=== PATIENT | female | born 1945 | race Caucasian/White ===

== ENCOUNTER 2019-06-06 07:49 | Emergency (ER) | payer MEDICARE, SELFPAY ==
[2019-06-06 07:53] VITALS: BP 124/51; PULSE 64; RESP 18; TEMP 37.5; O2SAT 96
--- NOTE | 2019-06-06 08:00 | ED.DENTAL ---
HPI - Dental/Oral General Chief complaint: Dental/Oral Stated complaint: TOOTH ABSCESS Time Seen by Provider: 06/06/19 08:00 Source: patient Mode of arrival: ambulatory Limitations: no limitations History of Present Illness HPI Narrative: Pt is a 73 y/o female who presents to the ED with c/o rt lower tooth throbbing pain that started about 10 days ago. She states that she saw her Dentist a week ago and she was told that she had a cavity at the root of her tooth. She was put on Clindamycin but she has only takes it for 2 days. Pt also reports swelling to her rt lower jaw. She denies a fever. Her Dentist is Dr. Mukherjee, but he is out of town until 06/10/19. She was referred to a dental specialist to pull her tooth but she has not made that appointment yet. She tried using Oral-gel to numb her pain. Pt is able to take pain medicine without getting nauseas. Complaint: tooth pain Location: Tooth # (29) Teeth map: 1. Onset (ago): day(s) (10) Duration: constant Relieving factors: nothing Context: history of dental caries Associated symptoms: gum swelling Treatment prior to arrival: topical analgesic Related Data Allergies Allergy/AdvReac Type Severity Reaction Status Date / Time Sulfa (Sulfonamide Allergy Severe THROAT Verified 12/20/17 08:34 Antibiotics) SWELLING penicillin G Allergy Unknown RASH Verified 12/20/17 08:34 Penicillins Allergy Unknown Verified 12/20/12 11:20 sulfacetamide Allergy Unknown Verified 12/20/12 11:21 Review of Systems Review of Systems: Narrative: CONSTITUTIONAL: Denies fever. ENT: Reports rt lower tooth ache and rt low jaw pain. No neck swelling or neck pain. CV: No chest pain All systems reviewed & are unremarkable except as noted in HPI and below PMFSH Past Medical History Medical History (Updated 06/06/19 @ 08:19 by Senia Watters MD) Arm fracture, left GERD (gastroesophageal reflux disease) HLD (hyperlipidemia) HTN (hypertension) Surgical History Surgical History (Updated 06/06/19 @ 08:12 by Cookie Gallagher) H/O bilateral cataract extraction Family History Family History (Updated 02/06/14 @ 07:13 by DOCTOR UNKNOWN) Father Family history of liver disease Mother Family history of coronary artery disease Social History Social History Smoking status: Never smoker Second hand tobacco smoke exposure: No Alcohol intake: current Exam Narrative: Exam Narrative: GENERAL: Well-appearing, well-nourished, and in no acute distress. HEAD: Normocephalic, atraumatic. EYES: PERRLA and EOMI. ENT: Nares clear, no rhinorrhea or epistaxis. Mucous membranes moist. No trismus, uvula midline. Tenderness at molar 29. Molar 31 and 32 have been extracted. No abscess identified. No purulent discharge. NECK: No neck stiffness or edema. No lympadenopathy. Mild rt mandibular edema with no erythema. No warmth. CHEST: Clear to auscultation. No respiratory distress. HEART: Regular rate and rhythm. No murmur heard. Normal peripheral pulses. ABDOMEN: Nondistended. EXTREMITIES: Normal range of motion. No edema. SKIN: Warm, dry, no rash. NEURO: No focal deficits. Alert and oriented X3. Course Course Emergency Course: Patient presents for evaluation of continued dental pain in the setting of known dental carry, root infection. Patient has been seen by dentist, but their office is closed until the . She was recently brought in from clarithromycin to clindamycin, this would be the morning of day 2. Patient denies any fever, chills, no difficulty swallowing, no neck pain. She has mild mandibular edema on exam without much tenderness. No trismus. No sign of Ludewig's angina. There is no abscess in the mouth with purulent discharge. She did have tenderness over molar 29. Patient is on the appropriate antibiotic course. She has not quite met the appropriate timeframe that we would expect to see a big improvement in symptoms that she still
== END 2019-06-06 08:44 | disposition home or self-care (01) ==
LOC: ANHED 08:20
PROVIDERS: Emergency Provider Emergency Medicine; PCP Internal Medicine
DX: K02.9 Dental caries, unspecified (principal); E78.5 Hyperlipidemia, unspecified; I10 Essential (primary) hypertension
CPT/HCPCS: 99283